=== PATIENT | female | born 1960 | race African-American/Black ===

== ENCOUNTER 2022-08-06 12:14 | Emergency (ER) | payer OTHER ==
[~2022-08-06] VITALS: Ht 180.3 cm; Wt 77.0 kg
[2022-08-06 12:20] VITALS: O2SAT 99
[2022-08-06 12:50] LABS: CHLORIDE 107 mEq/L (98-107)
[2022-08-06 12:51] LABS: PARTIAL THROMBOPLASTIN TIME 26.5 sec (23.4-31.0); PROTHROMBIN TIME 10.7 sec (9.6-11.0)
[2022-08-06 12:53] LABS: BASOPHILS % 0.8 % (0.0-2.0); EOSINOPHILS % 1.5 % (0.0-5.0); HEMATOCRIT. 37.2 % (36.0-48.0); HEMOGLOBIN. 12.7 g/dL (12.0-16.0); LYMPHOCYTES % 38.3 % (20.0-50.0); MEAN CORPUSCULAR HEMOGLOBIN 29.2 pg (28.0-32.0); MEAN PLATELET VOLUME 7.6 fl (7.4-10.4); MONOCYTES % 7.3 % (2.0-8.0); NEUTROPHILS % 52.1 % (40.0-76.0); PLATELET 298 x1000/uL (130-400); RED BLOOD CELL COUNT 4.33 mill/uL (4.2-5.4); RED CELL DISTRIBUTION WIDTH 13.2 % (11.6-14.6)
[2022-08-06] MEDS ORDERED: IBUP-2029 MT (13:46)
[2022-08-06 14:07] VITALS: BP 109/83; PULSE 72; RESP 18; TEMP 98.4
== END 2022-08-06 14:08 | disposition home or self-care (01) ==
LOC: ER 12:14
DX: R07.89 Other chest pain (principal); E78.00 Pure hypercholesterolemia, unspecified; E11.9 Type 2 diabetes mellitus without complications
CPT/HCPCS: 36415; 71045; 80053; 83880; 84484; 85025; 93005; 99285